=== PATIENT | male | born 1995 ===

== ENCOUNTER 2021-03-20 12:01 | Emergency (ER) | payer SELFPAY ==
[2021-03-20] MEDS ORDERED: LIDOCAINE (1%) 10 MG/1 ML VIAL 20 ML MDV INFILTRATI ONE ×2 (12:04→12:30)
[2021-03-20] MEDS ORDERED: HYDROcodone/ACETAMINOPHEN 5-325 MG TAB PO ONE ×2 (12:04→13:00)
--- NOTE | 2021-03-20 12:05 | Event Note ---
ED Screening Note Date of service: 03/20/21 Time: 12:04 ED Screening Note: 26-year-old male presents to the emergency room for left hand ring finger laceration and injury. Patient states that he was working on a car when a portion of the engine fell in his left hand. Patient presents with a laceration to his left ring finger with pain and bleeding. This initial assessment/diagnostic orders/clinical plan/treatment(s) is/are subject to change based on patients health status, clinical progression and re- assessment by fellow clinical providers in the ED. Further treatment and workup at subsequent clinical providers discretion. Patient/guardian urged not to elope from the ED as their condition may be serious if not clinically assessed and managed. Initial orders include:
[2021-03-20] MEDS ORDERED: TETANUS,DIPH,PERTUSS(ACELL) VACCINE 0.5 ML SYRINGE IM ONE (13:00)
--- NOTE | 2021-03-20 13:00 | Emergency Department Report ---
Upper Extremity - HPI Chief Complaint: Pain General Stated Complaint: CUT FINGER/LAC Time Seen by Provider: 03/20/21 12:59 Upper Extremity: Left Ring Finger Occurred When: Today Mechanism: Crush Symptoms: Yes Pain with Movement, Yes Deformity, Yes Limited Range of Movement, Yes Bruising/Ecchymosis, Yes Laceration or Abrasion, No Numbness, No Weakness, No Swelling Other History: 26-year-old male presents to the ER today with complaints of crush injury to his left fourth finger. Patient states that this occurred about an hour prior to arrival while she was at work. He states that a curtis of a car that he was fixing fell onto his hand. He reports pain, bleeding and laceration to his right fourth finger. He denies any numbness to the finger. He is right- hand dominant. He is not up-to-date on his tetanus. He reports no additional symptoms at this time. ED Review of Systems ROS: Stated complaint: CUT FINGER/LAC Other details as noted in HPI Comment: All other systems reviewed and negative Constitutional: denies: chills, fever Eyes: denies: eye pain, eye discharge, vision change ENT: denies: ear pain, throat pain Respiratory: denies: cough, shortness of breath, wheezing Cardiovascular: denies: chest pain, palpitations Endocrine: no symptoms reported Gastrointestinal: denies: abdominal pain, nausea, diarrhea Genitourinary: denies: urgency, dysuria, frequency, hematuria, discharge, testicular pain, testicular mass Musculoskeletal: other (Finger laceration). denies: back pain, joint swelling, arthralgia Skin: other (Finger laceration). denies: rash, lesions, change in color, change in hair/nails, pruritus Neurological: denies: headache, weakness, paresthesias Psychiatric: denies: anxiety, depression, auditory hallucinations, visual hallucinations, homicidal thoughts, suicidal thoughts Hematological/Lymphatic: denies: easy bleeding, easy bruising, swollen glands ED Past Medical Hx - Past Medical History Previous Medical History?: No - Medications Home Medications: Home Medications Medication Instructions Recorded Confirmed Last Taken Type HYDROcodone/APAP 5-325 [[place] 1 each PO Q6HR PRN #12 tablet 03/20/21 Unknown Rx 5/325] Ibuprofen [Motrin] 600 mg PO Q8H PRN #30 tablet 03/20/21 Unknown Rx cephALEXin [Keflex] 500 mg PO Q6HR #40 capsule 03/20/21 Unknown Rx Upper Extremity Exam - Exam General: Vital signs noted. No distress. Alert and acting appropriately. Head and Torso: No HEENT Abnormality, No Neck Tenderness, No Chest/Lungs Abnormality, No Abdominal Tenderness, No Back Tenderness Shoulder Exam: Yes Normal Range of Motion in Shoulder, No Shoulder Tenderness, No Clavicle Tenderness, No Shoulder Deformity, No AC Joint Tenderness Arm Exam: No Arm/Humerus Tenderness, No Arm Deformity Elbow: Yes Normal Range of Motion in Elbow, No Elbow Tenderness, No Elbow Deformity Forearm: No Forearm Tenderness, No Forearm Deformity, No Pain with Pronation, No Pain with Supination Wrist: Yes Normal ROM in Wrist, No Wrist Tenderness, No Wrist Deformity, No Snuffbox Tenderness, No Pain with Axial Thumb Compression Hand: Yes Digit Tenderness (Tenderness to palpation to the distal aspect of his left fourth finger), Yes Digit(s) Deformity (Partial amputation noted to the distal aspect of his left forefinger), No Normal ROM in Digit(s) (Decreased flexion-extension joint of his left fourth finger) CMS Exam: Yes Broken Skin (Partial amputation noted to the distal aspect of his left fourth finger with parital nail avulsion), Yes Normal Distal Pulses, Yes Normal Capillary Refill, Yes Normal Distal Sensation ED Course Vital Signs 03/20/21 03/20/21 12:14 12:24 Temperature 98.7 F Pulse Rate 98 H Respiratory 18 16 Rate Blood Pressure 134/78 [Left] O2 Sat by Pulse 97 Oximetry - Laceration /Wound Repair Left Distal Finger Wound Location: upper extremity (Left distal fourth finger) Wound's Depth, Shape: irregular, flap, nail-avulsed, contused tissue Wound Explored: clean Irrigated w/ Saline (ccs): 1,000 Betadine Prep?: Yes Anesthesia: 1% Lidocaine Volume Anesthetic (ccs): 10 Wound Repaired With: sutures Suture Size/Type: 3:0, proline Number of Sutures: 6 Layer Closure?: No Sterile Dressing Applied?: Yes Progress: Patient tolerated well without any complications - Nerve Block Consent Obtained: verbal consent Time Out Performed: No Local Anesthetic Used: Lidocaine 1% Amount of anesthesia used: 10 Side: left Nerve Blocks: digital Procedure Successful: Yes Complications: none Patient Tolerated Procedure: well, no complications ED Medical Decision Making - Radiology Data Radiology results: report reviewed Patient: LUCY FRANCOIS I MR#: [id number] : 1995 Acct:[id number] Age/Sex: 26 / M ADM Date: 03/20/21 Loc: ED Attending Dr: Ordering Physician: KEVON RUGGIERO Date of Service: 03/20/21 Procedure(s): XR finger(s) 2+V LT Accession Number(s): [id number] cc: KEVON RUGGIERO Fluoro Time In Minutes: LEFT RING FINGER 3 VIEWS INDICATION / CLINICAL INFORMATION: Left hand ring finger trauma and laceration. COMPARISON: None available. FINDINGS: BONES / JOINT(S): There is an acute comminuted distracted fracture involving the distal aspect of the distal phalanx of the ring finger. The fracture predominantly involves the terminal tuft. No dislocation. No significant arthritis. SOFT TISSUES: There is associated soft tissue irregularity involving the tip of the ring finger characteristic of laceration. No radiopaque foreign body is seen. ADDITIONAL FINDINGS: None. IMPRESSION: Open comminuted fracture of the distal portion of the distal phalanx of the ring finger. Signer Name: Mac Ayala MD Signed: 03/20/2021 1:03 PM Workstation Name: [id number] Transcribed By: RT Dictated By: Mac Ayala MD Electronically Authenticated By: Mac Ayala MD Signed Date/Time: 03/20/21 1303 DD/ 1301 - Medical Decision Making Patient with partial amputation of distal aspect of his left 4th finger with underlying fracture of distal phalanx and partial nail avulsion. Wound was thoroughly irrigated and wound edges were loosely approximated. Non stick tube gauze dressing and finger splint applied. See procedure note for further details. Discussed x-ray results with patient and informed him of the importance of follow-up with a hand specialist next week.. Hand surgery referral will be given to him on his discharge instructions. He was also given a copy of his x-ray on a CD. Also stressed to patient importance of taking the antibiotics as prescribed. He will also be given medications to help his pain. Patient expressed understanding of all instructions and agree with plan. Patient was stable at time of discharge. Critical care attestation.: If time is entered above; I have spent that time in minutes in the direct care of this critically ill patient, excluding procedure time. ED Disposition Clinical Impression: Open fracture of distal phalanx, Partial traumatic amputation of finger through phalanx Disposition: 01 HOME / SELF CARE / HOMELESS Is pt being admited?: No Does the pt Need Aspirin: No Condition: Stable Instructions: Finger Fracture, Adult, Traumatic Finger Amputation Additional Instructions: It is important that you take the Keflex as prescribed. Take the hydrocodone as prescribed. Most importantly, follow-up with the hand surgeon given to you on your discharge instructions. I recommend that you call either today or Tuesday for an appointment next week. Do not remove the splint until follow-up with hand surgeon. Return to the ER if there is any changes or worsening of his symptoms. Prescriptions: cephALEXin [Keflex] 500 mg PO Q6HR #40 capsule Ibuprofen [Motrin] 600 mg PO Q8H PRN #30 tablet PRN Reason: Pain HYDROcodone/APAP 5-325 [[place] 5/325] 1 each PO Q6HR PRN #12 tablet PRN Reason: Pain Referrals: [facility] [Provider Group] - 3-5 Days Forms: Work/School Release Form(ED) Time of Disposition: 14:06 Print Language: SLOVAK
--- NOTE | 2021-03-20 13:07 | XRay Report ---
LEFT RING FINGER 3 VIEWS INDICATION / CLINICAL INFORMATION: Left hand ring finger trauma and laceration. COMPARISON: None available. FINDINGS: BONES / JOINT(S): There is an acute comminuted distracted fracture involving the distal aspect of the distal phalanx of the ring finger. The fracture predominantly involves the terminal tuft. No disloca tion. No significant arthritis. SOFT TISSUES: There is associated soft tissue irregularity involving the tip of the ring finger brandon cteristic of laceration. No radiopaque foreign body is seen. ADDITIONAL FINDINGS: None. IMPRESSION: Open comminuted fracture of the distal portion of the distal phalanx of the ring finger. Signer Name: Mac yAala MD Signed: 03/20/2021 1:03 PM Workstation Name: [id number]
[2021-03-20] MEDS ORDERED: WATER FOR IRRIG STERILE 1,000 ML BOTTLE IR ONE (13:32)
[2021-03-20] MEDS ORDERED: SODIUM CHLORIDE IRRI 500 ML 1,000 ML IR ONE (13:35)
[2021-03-20 14:33] VITALS: BP 121/82
== END 2021-03-20 14:33 | disposition home or self-care (01) ==
LOC: ED 12:01
DX: S62.635A Displaced fracture of distal phalanx of left ring finger, initial encounter for closed fracture (principal); W22.8XXA Striking against or struck by other objects, initial encounter; Y93.89 Activity, other specified; Y92.89 Other specified places as the place of occurrence of the external cause; Y99.0 Civilian activity done for income or pay
CPT/HCPCS: 90471; 90715; 99283